=== PATIENT | male | born 1975 | race African-American/Black ===

== ENCOUNTER 2023-06-07 02:16 | Emergency (ER) | payer OTHER ==
[~2023-06-07] VITALS: Ht 188 cm; Wt 90.7 kg
[2023-06-07 03:05] LABS: BASOPHILS # (AUTO) 0.1 K/UL (0.0-0.2); BASOPHILS % (AUTO) 1.1 % (0.0-2.0); EOSINOPHILS # (AUTO) 0.5 K/uL (0.0-0.7); EOSINOPHILS % (AUTO) 7.2 % (0.0-7.0); HEMATOCRIT 45.3 % (36.7-47.1); HEMOGLOBIN 15.6 g/dL (12.5-16.3); LYMPHOCYTES # (AUTO) 2.4 K/uL (0.8-4.8); MEAN CORPUSCULAR HEMOGLOBIN 32.8 uug (23.8-33.4); MEAN CORPUSCULAR HGB CONC 35 g/dL (32.5-36.3); MEAN CORPUSCULAR VOLUME 95.1 fL (73.0-96.2); MONOCYTES # (AUTO) 0.6 K/uL (0.1-1.30); MONOCYTES % (AUTO) 8.8 % (0.0-11.0); NEUTROPHILS % (AUTO) 45.9 % (38.5-71.5); PLATELET COUNT (AUTO) 209 K/uL (152-348); RED BLOOD CELL COUNT(AUTO) 4.76 MIL/uL (4.06-5.63); RED CELL DISTRIBUTION WIDTH 13.9 % (12.1-16.2); WHITE BLOOD COUNT (AUTO) 6.5 K/uL (3.6-10.2)
[2023-06-07 03:15] LABS: DIFFERENTIAL COMMENT 1
[2023-06-07 03:20] LABS: CALCIUM 8.9 mg/dL (8.5-10.1); CARBON DIOXIDE 32 mmol/L (21-32); CHLORIDE 102 mmol/L (98-107); CREATININE 1.3 mg/dL (0.6-1.3); GLUCOSE 147 mg/dL (74-106); SODIUM SERUM 139 mmol/L (136-145); UREA NITROGEN, BLOOD 11 mg/dL (7-18)
[2023-06-07 03:28] LABS: ALANINE AMINOTRANSFERASE 38 U/L (16-63); ALBUMIN 3.8 g/dL (3.4-5.0); ALKALINE PHOSPHATASE 71 U/L (50-136); ASPARTATE AMINOTRANSFERASE 19 U/L (15-37); BILIRUBIN,DIRECT 0.1 mg/dL (0.0-0.2); BILIRUBIN,TOTAL 0.6 mg/dL (0.2-1.0); LIPASE 64 U/L (73-393); TOTAL PROTEIN, SERUM 7.3 g/dL (6.4-8.2)
[2023-06-07] MEDS ORDERED: HYDROCODONE/APAP 5-325MG TABLET ONE (04:45)
[2023-06-07] MEDS ORDERED: HYDROCODONE/APAP 5-325MG TABLET PO ONE (05:30)
[2023-06-07 08:00] VITALS: O2SAT 99
[2023-06-07] MEDS ORDERED: IBUP-1957 PO (10:52)
== END 2023-06-07 11:07 | disposition home or self-care (01) ==
LOC: ER 02:33
DX: K43.2 Incisional hernia without obstruction or gangrene (principal); F17.210 Nicotine dependence, cigarettes, uncomplicated
CPT/HCPCS: 36415; 83690; 84484; 85025; 93005; A4663

== ENCOUNTER 2024-01-01 23:58 | Emergency (ER) | payer OTHER ==
[~2024-01-01] VITALS: Ht 188 cm; Wt 99.8 kg
[~2024-01-01 23:58] MED LIST: IBUP-1957 PO
[2024-01-02 00:39] LABS: BASOPHILS # (AUTO) 0.1 K/UL (0.0-0.2); BASOPHILS % (AUTO) 0.9 % (0.0-2.0); DIFFERENTIAL COMMENT 1; EOSINOPHILS # (AUTO) 0.2 K/uL (0.0-0.7); EOSINOPHILS % (AUTO) 3.5 % (0.0-7.0); HEMATOCRIT 44.1 % (36.7-47.1); HEMOGLOBIN 15.1 g/dL (12.5-16.3); LYMPHOCYTES # (AUTO) 2.4 K/uL (0.8-4.8); LYMPHOCYTES % (AUTO) 35.3 % (20.5-51.5); MEAN CORPUSCULAR HEMOGLOBIN 31.9 uug (23.8-33.4); MEAN CORPUSCULAR HGB CONC 34 g/dL (32.5-36.3); MONOCYTES # (AUTO) 0.4 K/uL (0.1-1.30); MONOCYTES % (AUTO) 6.5 % (0.0-11.0); NEUTROPHILS # (AUTO) 3.7 K/uL (1.8-8.9); NEUTROPHILS % (AUTO) 53.8 % (38.5-71.5); PLATELET COUNT (AUTO) 243 K/uL (152-348); RED BLOOD CELL COUNT(AUTO) 4.75 MIL/uL (4.06-5.63); RED CELL DISTRIBUTION WIDTH 14.1 % (12.1-16.2); WHITE BLOOD COUNT (AUTO) 6.9 K/uL (3.6-10.2)
[2024-01-02] MEDS ORDERED: DICYCLOMINE HCL 20 MG TABLET ONE (00:42)
[2024-01-02 00:49] LABS: CALCIUM 8.9 mg/dL (8.5-10.1); CREATININE 1.1 mg/dL (0.6-1.3); POTASSIUM 3.9 mmol/L (3.5-5.1)
[2024-01-02] MEDS: DICYCLOMINE HCL 20 MG TABLET PO STA (00:50)
[2024-01-02] MEDS: IV NORMAL SALINE 1000 ML BAG IV ONE (00:50)
[2024-01-02 00:55] LABS: ALBUMIN 3.8 g/dL (3.4-5.0); BILIRUBIN,DIRECT 0.1 mg/dL (0.0-0.2); BILIRUBIN,TOTAL 0.4 mg/dL (0.2-1.0); TOTAL PROTEIN, SERUM 7.4 g/dL (6.4-8.2)
[2024-01-02] MEDS ORDERED: METOCLOPRAMIDE HCL 10 MG/2 ML VIAL ONE (00:59)
[2024-01-02] MEDS ORDERED: KETOROLAC TROMETHAMINE 30 MG INJ ONE (00:59)
[2024-01-02] MEDS: METOCLOPRAMIDE HCL 10 MG/2 ML VIAL IV ONE (01:06)
[2024-01-02] MEDS: KETOROLAC TROMETHAMINE 30 MG INJ IVP ONE (01:06)
[2024-01-02] MEDS ORDERED: CLID1CAP PO (01:55)
[2024-01-02 02:26] VITALS: BP 130/80; TEMP 98.1; O2SAT 97
== END 2024-01-02 | disposition home or self-care (01) ==
LOC: ER 01-02 00:12
DX: R10.9 Unspecified abdominal pain (principal); Z79.899 Other long term (current) drug therapy
CPT/HCPCS: 99284; 96374; 96361; 96375; 80076; 80048; 83690; 85025; 36415; 74021; J1885; J2765; J7040; A4606; A4663